=== PATIENT | female | born 1985 | race African-American/Black ===

== ENCOUNTER 2025-04-20 15:55 | Emergency (ER) | payer OTHER ==
[~2025-04-20] VITALS: Ht 165.1 cm; Wt 115.5 kg
--- NOTE | 2025-04-20 16:21 | ED.PDOC ---
HPI (NEURO) HPI Comments A 39 YEAR OLD FEMALE PRESENTS TO THE ED WITH COMPLAINT OF HEADACHE. PT STATES SHE HAS HX OF MIGRAINE HEADACHE FOR YEARS. SHE WOKE UP THIS MORNING WITH RIGHT SIDED HEADACHE RADIATING TO THE NECK. PATIENT STATES SHE ATTEMPTED TO TAKE EXCEDRIN BUT UNABLE TO TOLERATE AND HAD VOMITING EPISODE. PATIENT OTHERWISE STATES THAT SHE IS UNABLE TO KEEP ANYTHING DOWN ALL DAY AND CAME FOR FURTHER TREATMENT. PATIENT DENIES FEVER, CHILLS, SHORTNESS OF BREATH, CHEST PAIN, ABDOMINAL PAIN, NAUSEA, VOMITING, OR OTHER COMPLAINTS. NO OTHER SYMPTOMS OR MODIFYING FACTORS AT THIS TIME. PATIENT IS ALERT, ORIENTED X 4, AND HAS STEADY GAIT. Chief Complaint: Headache Time Seen by MD: 16:20 Primary Care Provider: MOHSEN Reviewed Notes: Nurses Notes, Medications, Allergies Information Source: Patient Mode of Arrival: Ambulatory Brought in by: SELF Severity: Moderate Dizziness/Weakness Severity: Does not affect activitie Headache Severity: Moderate, Worst Headache of life Timing: Hours Duration: Since onset, Hours Prehospital treatment: None Headache Quality: Throbbing, Aching, Tight Headache Location: Parietal Onset: At rest Circumstances: Spontaneous Symptoms: None Before: Normal During: Trauma: None History of: Other (MIGRAINE HEDACHE ) Modifying factors: Light Associated Signs and Symptoms: Headache, Nausea, Vomiting Past Medical History Past Medical History (Other): MIGRAINE HEADache Surgical History: Denies all surgeries PLACEMENT SPECIALIST History: Denies all PLACEMENT SPECIALIST Hx Family History Family History: Reviewed,noncontributory to illness Social History Smoker: Non-Smoker Alcohol: Rarely Drugs: Denies Drug Use Lives In: Home Constitutional: reports: others (anxious ); denies: chills, diaphoresis, fatigue, fever, malaise, sweats, weakness EENTM: denies: blurred vision, double vision, ear bleeding, ear discharge, ear drainage, ear pain, ear ringing, eye pain, eye redness, hearing loss, mouth pain, mouth swelling, nasal discharge, nose bleeding, nose congestion, nose pain, photophobia, tearing, throat pain, throat swelling, voice changes, others Respiratory: denies: cough, hemoptysis, orthopnea, SOB at rest, shortness of breath, SOB with excertion, stridor, wheezing, others Cardiovascular: denies: chest pain, dizzy spells, diaphoresis, Dyspnea on exertion, edema, irregular heart beat, left arm pain, lightheadedness, palpitations, PND, syncope, others Gastrointestinal: reports: nausea, vomiting; denies: abdomen distended, abdominal pain, blood streaked bowels, constipated, diarrhea, dysphagia, difficulty swallowing, hematemesis, melena, poor appetite, poor fluid intake, rectal bleeding, rectal pain, others Genitourinary: denies: abnormal vagina bleeding, burning, dyspareunia, dysuria, flank pain, frequency, hematuria, incontinence, pain, , vagina dis charge, urgency, others Neurological: reports: headache; denies: dizziness, fainting, left sided numbness, left sided weakness, numbness, paresthesia, pre-existing deficit, right sided numbness, right sided weakness, seizure, speech problems, tingling, tremors, weakness, others Musculoskeletal: denies: back pain, gout, joint pain, joint swelling, muscle pain, muscle stiffness, neck pain, others Integumetry: denies: bruises, change in color, change in hair/nails, dryness, laceration, lesions, lumps, rash, wounds, others Allergic/Immunocompromised: denies: Difficulty Healing, Frequent Infections, Hives, Itching, others Hematologic/Lymphatic: denies: anemia, blood clots, easy bleeding, easy bruising, swollen glands, others Endocrine: denies: excessive hunger, excessive sweating, excessive thirst, excessive urination, flushing, intolerance to cold, intolerance to heat, unexplained weight gain, unexplained weight loss, others Psychiatric: reports: anxiety; denies: bipolar disorder, depression, hopeless, panic disorder, schizophrenia, sleepless, suicidal, others All Other Systems: Reviewed and Negative Physical Exam General Appearance: Mild Distress, Obese HEENT: Normal ENT Inspection, PERRL/EOMI, Pharynx Normal, TMs Normal Neck: Full Range of Motion, Non-Tender, Normal, Normal Inspection Respiratory: Chest Non-Tender, Lungs Clear, No Accessory Muscle Use, No Respiratory Distress, Normal Breath Sounds Cardiovascular: No Edema, No JVD, No Murmur, No Gallop, Normal Peripheral Pulses, Regular Rate/Rhythm Breast Exam: Deferred Gastrointestinal: No Organomegaly, Non Tender, No Pulsatile Mass, Normal Bowel Sounds, Soft Genitalia: Deferred Pelvic: Deferred Rectal: Deferred Extremities: No calf tenderness, Normal capillary refill, Normal inspection, Normal range of motion, Non-tender, No pedal edema Musculoskeletal : Apperance: Normal Neurologic: Alert, head stock operator II-XII nml as Tested, Headache, No Motor Deficits, Normal Affect, Normal Mood, No Sensory Deficits Cerebellar Function: Normal Reflexes: Normal Skin: Dry, Normal Color, Warm Peripheral Pulses: 2+ carotid (R), 2+ carotid (L) Lymphatic: No Adenopathy Was a procedure done? Was a procedure done?: No Differential Diagnosis (SZ) General Weakness: Anemia, Dehydration, Electrolyte imbalance, Vertigo: central, Vertigo: peripheral Headache: Cluster, Migraine, Intracerebral Hemorrhage, Mass Lesion, Post- Traumatic, Sinusitis X-Ray, Labs, Meds, VS Vital Signs Date Time Temp Pulse Resp B/P (MAP) Pulse Ox O2 Delivery O2 Flow Rate FiO2 04/20/25 17:16 98.4 76 18 140/82 (101) 98 98.4 04/20/25 17:16 76 18 98 Room Air 04/20/25 15:57 98.5 86 18 144/96 99 98.5 Current Medications Medications (Trade) Dose Ordered Sig/Darcie Route Start Time Stop Time Status Last Admin Sodium Chloride 1,000 ml @ 1,000 mls/hr Q1H ONCE IV 04/20/25 16:45 04/20/25 17:44 DC 04/20/25 17:09 Metoclopramide HCl (Reglan Injection) 10 mg ONCE ONCE IV 04/20/25 17:00 04/20/25 17:01 DC 04/20/25 17:12 Diphenhydramine HCl (Benadryl Injection) 25 mg ONCE ONCE IV 04/20/25 17:00 04/20/25 17:01 DC 04/20/25 17:12 PATIENT: ROMAN CASTANONCCT: [id number]: [id number] : 1985 LOC: ER ROOM / BED: / AGE / SEX: 39 / F ADM STATUS: REG ER SERVICE [id number] ORDERING PHYSICIAN: TRUE MORRIS PROCEDURE(s): HWOCT - HEAD WITHOUT CONTRAST REASON: RIGHT SIDE HEADACHE WITH N/V ORDER NUMBER(s): [id number], ACCESSION NUMBER(s): [id number] EXAM: CT HEAD WITHOUT CONTRAST INDICATION: RIGHT SIDE HEADACHE WITH N/V TECHNIQUE: CT of the head without intravenous contrast. Radiation Dose : 1. Head: CT Dose: CTDI volume is 56.2 mGy. Dose-length product is 900.48 mGy*cm The dose indicators for CT are the volume Computed Tomography (CT) Dose Index (CTDIvol) and the Dose Length Product (DLP), and are measured in units of mGy and mGy-cm, respectively. These indicators are not patient dose, but values generated from the CT scanner acquisition factors. The report includes radiation exposure data for exposures received during this examination. COMPARISON: None FINDINGS: There is no evidence of acute intracranial hemorrhage, extra-axial collection, mass effect, midline shift, herniation or hydrocephalus. The ventricles, sulci and cisterns are age appropriate. The alberto-white differentiation is intact. The visualized paranasal sinuses and mastoid air cells are clear. The surrounding soft tissues and osseous structures are unremarkable. IMPRESSION: No acute intracranial abnormality. Radiation optimization: All CT scans at this facility use at least one of these dose optimization techniques: automated exposure control mA and/or kV adjustmen t per patient size (includes targeted exams where dose is matched to clinical indication) or iterative reconstruction. ATED BY: LUDWIG OWENS MD DICTATED DATE/TIME: 04/20/251710 SIGNED BY: LUDWIG OWENS MD SIGNED DATE/TIME: 04/20/251710 CC: X-Ray, Labs, Meds, VS Comment COURSE: EXTERNAL MEDICAL RECORDS REVIEWED: [NONE] INDEPENDENT HISTORIANS: [NONE] SOCIAL DETERMINANTS OF HEALTH: [NONE] LABS ORDERED: NONE REVIEWED AND INTERPRETED RESULTS: NONE IMAGING ORDERED: CT HEAD WITHOUT CONTRAST TREATMENTS ORDERED: ZOFRAN 4 MG IV ONCE, TORADOL 30 MG IV INJECTION ONCE, IV FLUIDS 1 L, METOCLOPRAMIDE 10 MG IV ONCE, BENADRYL 25 MG IV ONCE PROCEDURES PERFORMED: NONE CRITICAL CARE TIME: NONE I HAVE DISCUSSED THE PATIENT WITH THE ATTENDING PHYSICIAN DR. JACKSON AND HE AGREES WITH THE PATIENT'S PLAN OF CARE AND DISPOSITION. BASED ON HISTORY OF PRESENT ILLNESS, AND PHYSICAL EXAM, PATIENT WILL BE DISCHARGED HOME. DISCUSSED PLAN FOR DISCHARGE HOME WITH RX [IMITREX AND ZOFRAN]. MEDICATION WARNINGS GIVEN. SHARED DECISION MAKING: DISCUSSED WITH PATIENT THAT THEIR WORKUP WAS NORMAL. PATIENT INSTRUCTED TO FOLLOW UP WITH PRIMARY CARE PROVIDER IN 1-2 DAYS FOR RE-EVALUATION OF SYMPTOMS. PATIENT VERBALIZES UNDERSTANDING TO RETURN TO ED FOR NEW OR WORSENING SYMPTOMS OR IF FOLLOW UP WITH PCP CANNOT BE OBTAINED. PATIENT FEELS COMFORTABLE GOING HOME AT THIS TIME. ALL QUESTIONS ADDRESSED AT TIME OF DISCHARGE. Time of 1ST Reevaluation: 16:50 Reevaluation 1ST: Unchanged Time of 2ND Reevaluation: 17:47 Reevaluation 2ND: Improved Patient Education/Counseling: Diagnosis, Treatment, Need For Follow Up Family Education/Counseling: Diagnosis, Treatment, Need For Follow Up Medical Screening: No EMC Exist At This Time Departure 1 Departure Time of Disposition: 19:00 Impression: Primary Impression: Migraine headache Qualified Codes: G43.909 - Migraine, unspecified, not intractable, without status migrainosus Disposition: HOME / SELF CARE / HOMELESS Condition: Stable Additional Instructions: INSTRUCTIONS: FOLLOW-UP WITH PCP IN 1 TO 2 DAYS. TAKE MEDICATIONS PRESCRIBED. RETURN TO ED FOR ANY NEW OR WORSENING SYMPTOMS. e-Prescriptions Ondansetron Odt 4MG Tab (ZOFRAN PO) 4 Mg Tb 4 MG PO TID, #30 TAB ODT TAB-DISSOLVE IN MOUTH, THEN SWALLOW Prov: TRUE MORRIS 04/20/25 Sumatriptan Succinate (Imitrex) 50 Mg Tab 1 TAB PO BID, #20 TAB 1 Refill Prov: TRUE MORRIS 04/20/25 Discharged With: Self, Relative Critical Care Note Critical Care Time?: No Stability Stability form required: No Heart Score Heart Score: Heart Score Response (Comments) Value History N/A 0 EKG N/A 0 Age N/A 0 Risk Factors N/A 0 Troponin N/A 0 Total 0 I personally scribed for TRUE MORRIS ([email or web address]) on 04/20/25 at 16:21. Electronically submitted by Nathan Clark ([email or web address]). I personally scribed for TRUE MORRIS ([email or web address]) on 04/20/25 at 16:27. Electronically submitted by Nathan Clark ([employer]). I personally scribed for TRUE MORRIS ([email or web address]) on 04/20/25 at 16:28. Electronically submitted by Nathan Clark ([employer]). I personally scribed for TRUE MORRIS ([email or web address]) on 04/20/25 at 16:37. Electronically submitted by Nathan Clark ([employer]). I personally scribed for TRUE MORRIS ([email or web address]) on 04/20/25 at 17:00. Electronically submitted by Nathan Clark (JOSE A). TRUE MORRIS Apr 20, 2025 16:21
[2025-04-20] MEDS: SODIUM CHLORIDE 0.9% 1,000 ML IV ONE (17:09)
[2025-04-20] MEDS: ONDANSETRON HCL 4 MG/2 ML VIAL IV ONE (17:09)
[2025-04-20] MEDS: KETOROLAC TROMETH 30 MG/ML 1ML VIAL IV ONE (17:09)
[2025-04-20] MEDS: METOCLOPRAMIDE HCL 5MG/ml INJ 2ml VIAL IV ONE (17:12)
[2025-04-20] MEDS: diphenhydrAMINE HCL 50 MG/1 ML VL IV ONE (17:12)
--- NOTE | 2025-04-20 17:13 | DVH ---
EXAM: CT HEAD WITHOUT CONTRAST INDICATION: RIGHT SIDE HEADACHE WITH N/V TECHNIQUE: CT of the head without intravenous contrast. Radiation Dose : 1. Head: CT Dose: CTDI volume is 56.2 mGy. Dose-length product is 900.48 mGy*cm The dose indicators for CT are the volume Computed Tomography (CT) Dose Index (CTDIvol) and the Dose Length Product (DLP), and are measured in units of mGy and mGy-cm, respectively. These indicators are not patient dose, but values generated from the CT scanner acquisition factors. The report includes radiation exposure data for exposures received during this examination. COMPARISON: None FINDINGS: There is no evidence of acute intracranial hemorrhage, extra-axial collection, mass effect, midline shift, herniation or hydrocephalus. The ventricles, sulci and cisterns are age appropriate. The alberto-white differentiation is intact. The visualized paranasal sinuses and mastoid air cells are clear. The surrounding soft tissues and osseous structures are unremarkable. IMPRESSION: No acute intracranial abnormality. Radiation optimization: All CT scans at this facility use at least one of these dose optimization techniques: automated exposure control mA and/or kV adjustment per patient size (includes targeted exams where dose is matched to clinical indication) or iterative reconstruction.
[2025-04-20 17:16] VITALS: BP 140/82; PULSE 76; RESP 18; TEMP 98.4; O2SAT 98
[2025-04-20] MEDS ORDERED: SUMA50TA2 PO (17:45)
[2025-04-20] MEDS ORDERED: ZOFR4T PO (17:45)
== END 2025-04-20 18:35 | disposition home or self-care (01) ==
LOC: ER 15:55
DX: G43.909 Migraine, unspecified, not intractable, without status migrainosus (principal); Z79.899 Other long term (current) drug therapy
CPT/HCPCS: 70450; 96361; 96374; 96375; 99285; J1200; J1885; J2405; J2765; J7030